=== PATIENT | male | born 1965 | race Caucasian/White ===

== ENCOUNTER 2023-08-28 11:34 | Inpatient (IN) | payer OTHER ==
[~2023-08-28] VITALS: Ht 185.4 cm; Wt 76.7 kg
[2023-08-28 12:30] VITALS: BP 127/77; PULSE 82; RESP 18; TEMP 98.2; O2SAT 97
[2023-08-28] MEDS ORDERED: ALBUTEROL SULFATE 2.5 MG/0.5 ML NEB SOLUTION NEB PRN (14:00)
[2023-08-28] MEDS ORDERED: IPRATROPIUM BROMIDE 0.5 MG/2.5 ML NEB SOLUTION NEB PRN (14:00)
[2023-08-28] MEDS ORDERED: ACETAMINOPHEN 325 MG TABLET PO PRN (14:00)
[2023-08-28 16:20] VITALS: BP 134/79; PULSE 80; RESP 18; TEMP 98.8; O2SAT 98
[2023-08-28] MEDS: HydrALAZINE HCL 25 MG TABLET PO SCH (16:49)
[2023-08-28] MEDS: NYSTATIN 500,000 UNITS/5 ML SUSPENSION UDCUP PO SCH (16:49)
[2023-08-28] MEDS: SODIUM CHLORIDE 1 GM TABLET PO SCH (16:49)
[2023-08-28] MEDS: VANCOMYCIN HCL 125 MG/2.5 ML SOLUTION ORAL.SYG PO SCH (17:39)
[2023-08-28 19:01] VITALS: O2SAT 97
[2023-08-28 20:00] VITALS: BP 116/63; PULSE 71; RESP 18; TEMP 98.3; O2SAT 98
[2023-08-28] MEDS: SULFAMETHOX/TRIMETH DS 800-160 MG/TABLET PO SCH (21:41)
[2023-08-28] MEDS: ETHYL ALCOHOL 62% ANTISEPTIC NASAL SANITIZER 0.6 ML AMPUL NASAL SCH (21:41)
[2023-08-28] MEDS: MELATONIN 5 MG TABLET PO SCH (21:42)
[2023-08-28] MEDS: LevETIRAcetam 500 MG TABLET PO SCH (21:42)
[2023-08-28] MEDS: BACITRACIN 28 GM OINTMENT TP SCH (21:43)
[2023-08-28] MEDS: HYDROGEN PEROXIDE 473 ML SOLUTION TP SCH (21:43)
[2023-08-28] MEDS: HEPARIN SODIUM,PORCINE 5,000 UNITS/ML VIAL SQ SCH (23:40)
[2023-08-28] MEDS: TraZODone HCL 50 MG TABLET PO PRN (23:40)
[2023-08-29 07:01] LABS: BASOPHILS % (AUTO) 1.1 % (0.0-2.0); EOSINOPHILS % (AUTO) 2.9 % (1.0-6.0); HEMATOCRIT 38.8 % (41-53); HEMOGLOBIN 13.3 g/dL (13.5-17.5); LYMPHOCYTES # (AUTO) 2.2 K/uL (1.0-4.8); LYMPHOCYTES % (AUTO) 25.6 % (22.0-44.0); MEAN CORPUSCULAR HEMOGLOBIN 31.1 pg (26.0-34.0); MEAN CORPUSCULAR HGB CONC 34.3 G/dL (31.0-37.0); MEAN CORPUSCULAR VOLUME 91 fL (80-100); NEUTROPHILS # (AUTO) 5.2 K/uL (1.8-7.7); NEUTROPHILS % (AUTO) 59.4 % (40.0-70.0); PLATELET COUNT (AUTO) 481 K/uL (150-450); RED BLOOD CELL COUNT(AUTO) 4.28 MIL/uL (4.50-5.90); RED CELL DISTRIBUTION WIDTH 13.4 % (11.5-14.5); WHITE BLOOD COUNT (AUTO) 8.7 K/uL (4.5-11.0)
[2023-08-29 07:30] LABS: ALANINE AMINOTRANSFERASE 73 U/L (12-78); ALBUMIN 2.3 g/dL (3.4-5.0); ALKALINE PHOSPHATASE 79 U/L (46-116); ANION GAP 8 mmol/L (8-16); ASPARTATE AMINOTRANSFERASE 54 U/L (15-37); BILIRUBIN,TOTAL 0.4 mg/dL (0.1-1.0); CALCIUM, TOTAL 8.5 mg/dL (8.8-10.5); CARBON DIOXIDE 25 mmol/L (22-29); CHLORIDE 100 mmol/L (98-107); CREATININE 0.74 mg/dL (0.60-1.30); GLOMERULAR FILTR. RATE CALC > 60 mL/min (>60); GLUCOSE,RANDOM 103 mg/dL (70-110); POTASSIUM 4.1 mmol/L (3.5-5.1); SODIUM SERUM 133 mmol/L (136-145); UREA NITROGEN, BLOOD 10 mg/dL (7-18)
[2023-08-29 08:00] VITALS: BP 127/77; PULSE 78; RESP 18; TEMP 99.6; O2SAT 98
[2023-08-29] MEDS: AmLODIPine BESYLATE 10 MG TABLET PO SCH (08:37)
[2023-08-29 09:30] VITALS: TEMP 98.1
[2023-08-29 15:42] VITALS: BP 124/67; PULSE 72; RESP 18; TEMP 98.8
[2023-08-29 20:00] VITALS: BP 109/59; PULSE 73; RESP 18; TEMP 98.5; O2SAT 99
[2023-08-29] MEDS: LACTOBAC ACID/BULG/BIFID/THERM TABLET PO SCH (20:56)
[2023-08-29 23:39] VITALS: BP 90/50
[2023-08-30 08:05] VITALS: BP 127/82; PULSE 68; RESP 18; TEMP 98.2; O2SAT 97
[2023-08-30] MEDS: MULTIVITAMINS WITH MINERALS, THERAPEUTIC TABLET PO SCH (08:09)
[2023-08-30] MEDS: FAMOTIDINE 20 MG TABLET PO SCH (08:09)
[2023-08-30 11:09] VITALS: O2SAT 98
[2023-08-30 16:00] VITALS: BP 128/74; PULSE 75; RESP 18; TEMP 98; O2SAT 98
[2023-08-30 20:00] VITALS: BP 117/64; PULSE 74; RESP 18; TEMP 98.5; O2SAT 96
[2023-08-30 23:35] VITALS: BP 116/74; PULSE 73; RESP 19; O2SAT 97
[2023-08-31 08:00] VITALS: BP 119/66; PULSE 67; RESP 19; TEMP 98.3; O2SAT 98
[2023-08-31 16:00] VITALS: BP 116/61; PULSE 69; RESP 19; O2SAT 98
[2023-08-31 20:54] VITALS: BP 112/77; PULSE 80; RESP 18; TEMP 97.7; O2SAT 98
[2023-08-31 21:03] VITALS: O2SAT 98
[2023-08-31 23:22] VITALS: BP 128/73; PULSE 63
[2023-09-01 06:45] LABS: BASOPHILS % (AUTO) 0.3 % (0.0-2.0); EOSINOPHILS % (AUTO) 3.2 % (1.0-6.0); HEMATOCRIT 36.7 % (41-53); HEMOGLOBIN 12.6 g/dL (13.5-17.5); LYMPHOCYTES # (AUTO) 1.8 K/uL (1.0-4.8); LYMPHOCYTES % (AUTO) 29.5 % (22.0-44.0); MEAN CORPUSCULAR HEMOGLOBIN 31.1 pg (26.0-34.0); MEAN CORPUSCULAR HGB CONC 34.3 G/dL (31.0-37.0); MEAN CORPUSCULAR VOLUME 91 fL (80-100); MONOCYTES # (AUTO) 0.8 K/uL (0.1-1.0); MONOCYTES % (AUTO) 12.5 % (2.0-9.0); NEUTROPHILS # (AUTO) 3.4 K/uL (1.8-7.7); NEUTROPHILS % (AUTO) 54.5 % (40.0-70.0); PLATELET COUNT (AUTO) 604 K/uL (150-450); RED BLOOD CELL COUNT(AUTO) 4.06 MIL/uL (4.50-5.90); RED CELL DISTRIBUTION WIDTH 13.6 % (11.5-14.5); WHITE BLOOD COUNT (AUTO) 6.2 K/uL (4.5-11.0)
[2023-09-01 07:09] LABS: ALANINE AMINOTRANSFERASE 40 U/L (12-78); ALBUMIN 2.5 g/dL (3.4-5.0); ALKALINE PHOSPHATASE 77 U/L (46-116); ANION GAP 7 mmol/L (8-16); ASPARTATE AMINOTRANSFERASE 27 U/L (15-37); BILIRUBIN,TOTAL 0.3 mg/dL (0.1-1.0); CALCIUM, TOTAL 8.5 mg/dL (8.8-10.5); CARBON DIOXIDE 26 mmol/L (22-29); CHLORIDE 102 mmol/L (98-107); CREATININE 0.65 mg/dL (0.60-1.30); GLOMERULAR FILTR. RATE CALC > 60 mL/min (>60); GLUCOSE,RANDOM 100 mg/dL (70-110); SODIUM SERUM 134 mmol/L (136-145); UREA NITROGEN, BLOOD 8 mg/dL (7-18)
[2023-09-01 08:05] VITALS: BP 110/65; PULSE 62; RESP 18; TEMP 98.3; O2SAT 98
[2023-09-01 09:50] VITALS: O2SAT 98
[2023-09-01 16:00] VITALS: BP 124/71; PULSE 70; RESP 18; TEMP 98; O2SAT 98
[2023-09-01 20:00] VITALS: BP 108/73; PULSE 73; RESP 18; TEMP 98; O2SAT 97
[2023-09-01 23:35] VITALS: BP 119/73; PULSE 66; RESP 19; O2SAT 97
[2023-09-02 08:05] VITALS: BP 118/73; PULSE 68; RESP 19; TEMP 98.3; O2SAT 99
[2023-09-02 13:00] VITALS: O2SAT 99
[2023-09-02 20:00] VITALS: BP 110/64; PULSE 74; RESP 20; TEMP 98.1; O2SAT 97
[2023-09-03] VITALS (8 sets, daily range): BP systolic 109–127; BP diastolic 54–98; PULSE 56–65; RESP 18–20; TEMP 98.1–98.6; O2SAT 97–99
[2023-09-03] MEDS ORDERED: [UNRECOGNIZED DRUG - CODE] TP (17:05)
[2023-09-03] MEDS ORDERED: MELA5TAB40 PO (17:05)
[2023-09-03] MEDS ORDERED: VANC125C12 PO (17:05)
[2023-09-03] MEDS ORDERED: AMLO-258 PO (17:05)
[2023-09-03] MEDS ORDERED: FAMO20 PO (17:05)
[2023-09-03] MEDS ORDERED: LEVE500T20 PO (17:05)
[2023-09-03] MEDS ORDERED: SODI100067 PO (17:05)
[2023-09-03] MEDS ORDERED: ACID1TAB13 PO (17:05)
[2023-09-03] MEDS ORDERED: HYDR50TA36 PO (17:05)
[2023-09-03] MEDS ORDERED: MULT-248 PO (17:05)
[2023-09-03] MEDS ORDERED: BACI28.410 TP (17:05)
[2023-09-04 08:05] VITALS: BP 121/64; PULSE 68; RESP 18; TEMP 98.4; O2SAT 98
[2023-09-04 08:12] LABS: ANION GAP 6 mmol/L (8-16); CALCIUM, TOTAL 8.8 mg/dL (8.8-10.5); CARBON DIOXIDE 29 mmol/L (22-29); CHLORIDE 101 mmol/L (98-107); CREATININE 0.74 mg/dL (0.60-1.30); GLOMERULAR FILTR. RATE CALC > 60 mL/min (>60); GLUCOSE,RANDOM 96 mg/dL (70-110); POTASSIUM 4.8 mmol/L (3.5-5.1); SODIUM SERUM 136 mmol/L (136-145); UREA NITROGEN, BLOOD 9 mg/dL (7-18)
[2023-09-04 10:31] VITALS: O2SAT 98
[2023-09-04] MEDS ORDERED: FAMO20 PO (10:39)
[2023-09-04] MEDS ORDERED: ACID1TAB13 PO (10:39)
[2023-09-04] MEDS ORDERED: SODI100067 PO (10:39)
[2023-09-04] MEDS ORDERED: Multivitamins/Minerals PO (10:39)
[2023-09-04] MEDS ORDERED: AMLO-258 PO (10:39)
[2023-09-04] MEDS ORDERED: HYDR25TA84 PO (10:39)
[2023-09-04] MEDS ORDERED: VANCOPO PO (10:39)
[2023-09-04] MEDS ORDERED: LEVE500T8 PO (10:39)
[2023-09-04] MEDS ORDERED: SODIUM CHLORIDE 1 GM TABLET PO SCH (21:00)
[2023-09-04] MEDS ORDERED: DULoxetine HCL 30 MG CAPSULE PO SCH (21:00)
== END 2023-09-04 11:45 | disposition home or self-care (01) | DRG 58 ==
LOC: 2WR 12:20
PROVIDERS: ADMIT Physical Medicine & Rehabilitation; ATTEND Physical Medicine & Rehabilitation
DX: Q28.2 Arteriovenous malformation of cerebral vessels (principal); J96.01 Acute respiratory failure with hypoxia; I50.31 Acute diastolic (congestive) heart failure; A04.72 Enterocolitis due to Clostridium difficile, not specified as recurrent; E22.2 Syndrome of inappropriate secretion of antidiuretic hormone; G93.89 Other specified disorders of brain; I11.0 Hypertensive heart disease with heart failure; J15.5 Pneumonia due to Escherichia coli; E46 Unspecified protein-calorie malnutrition; G40.909 Epilepsy, unspecified, not intractable, without status epilepticus; G81.91 Hemiplegia, unspecified affecting right dominant side; F17.210 Nicotine dependence, cigarettes, uncomplicated; R41.89 Other symptoms and signs involving cognitive functions and awareness; R47.01 Aphasia; H91.92 Unspecified hearing loss, left ear; R13.10 Dysphagia, unspecified; Z78.9 Other specified health status; Z68.22 Body mass index [BMI] 22.0-22.9, adult
CPT/HCPCS: 80048; 80053; 85025; 87081; 92507; 92523; 97110; 97112; 97116; 97163; 97167; 97530; 97535; 99285; 99366; G0238; J1644; Q9967